=== PATIENT | male | born 2000 | race Caucasian/White ===

== ENCOUNTER 2020-08-24 01:07 | Emergency (ER) | payer SELFPAY ==
[~2020-08-24] VITALS: Ht 167.6 cm; Wt 72.6 kg
[2020-08-24] MEDS ORDERED: NS IV 1000 ML 1,000 ML IV STA (01:26)
--- NOTE | 2020-08-24 01:31 | ED Abdominal Pain ---
General Chief Complaint: Abdominal/GI Problems Stated Complaint: RT SIDE ABD PAIN Nursing Triage Note: RLQ ABDOMINAL PAIN SINCE 2100 AFTER EATING. Sepsis Screen: No Definite Risk Source of Information: Patient Exam Limitations: No Limitations History of Present Illness Date Seen by Provider: Aug 24, 2020 Time Seen by Provider: 01:20 Initial Comments Here with right-sided and right lower quadrant abdominal pain that started at about 9 PM after eating bread sticks. Pain went away but came back later after eating again. Pain is been and pretty constant although a little better currently. Denies nausea or vomiting but does feel a bit constipated. Denies dysuria or diarrhea or blood in his urine or stool. Denies fever chills. Tried drinking water to help him urinate but has not really urinated much since drinking the water. Timing/Duration: 4-6 Hours Severity/Quality: Moderate Location: RLQ Radiation: No Radiation Activities at Onset: None Modifying Factors: Worsens With Eating; Improves With Resting Associated Symptoms: No Fever/Chills, No Nausea/Vomiting, No Shortness of Air, No Weakness Allergies and Home Medications Allergies Coded Allergies: No Known Drug Allergies (Unverified , 08/24/20) Home Medications No Active Prescriptions or Reported Meds Patient Home Medication List Home Medication List Reviewed: Yes Review of Systems Review of Systems Constitutional: see HPI; No chills, No fever EENTM: No Symptoms Reported Respiratory: No Symptoms Reported Cardiovascular: Denies Chest Pain, Denies Edema Gastrointestinal: Abdominal Pain, Constipated; Denies Nausea, Denies Vomiting Genitourinary: No Symptoms Reported All Other Systems Reviewed Negative Unless Noted: Yes Past Aulzgws-Ttgrvj-Sxeico Hx Past Med/Social Hx: Reviewed Nursing Past Med/Soc Hx Patient Social History Alcohol Use: Rarely Uses Smoking Status: Current Everyday Smoker Type Used: Electronic/Vapor 2nd Hand Smoke Exposure: Yes Recent Infectious Disease Expo: No Recent Hopitalizations: No Immunizations Up To Date Tetanus Booster (TDap): Unknown Seasonal Allergies Seasonal Allergies: No Past Medical History Surgeries: No Respiratory: No Cardiac: No Neurological: No Genitourinary: No Gastrointestinal: No Musculoskeletal: No Endocrine: No HEENT: No Cancer: No Psychosocial: No Integumentary: No Blood Disorders: No Family Medical History Reviewed Nursing Family Hx No Pertinent Family Hx Physical Exam Vital Signs Vital Signs - First Documented 08/24/20 01:15 Temp 36.5 Pulse 99 Resp 18 B/P (MAP) 145/90 (108) Pulse Ox 99 O2 Delivery Room Air Capillary Refill : Less Than 3 Seconds Height/Weight/BMI Height: '" Weight: lbs. oz. kg; 25.00 BMI Method: General Appearance: WD/WN, no apparent distress HEENT: PERRL/EOMI, pharynx normal Neck: full range of motion, supple Respiratory: lungs clear, normal breath sounds Cardiovascular: regular rate, rhythm, no murmur Gastrointestinal: soft; No guarding, No rebound; tenderness (Right lower quadrant) Extremities: non-tender, normal inspection Back: normal inspection, no CVA tenderness, no vertebral tenderness Neurologic/Psychiatric: no motor/sensory deficits, alert, oriented x 3 Skin: normal color, warm/dry Progress/Results/Core Measures Results/Orders Lab Results Laboratory Tests Test 08/24/20 01:25 08/24/20 02:05 08/24/20 03:32 Range/Units White Blood Count 11.8 H 4.3-11.0 10^3/uL Red Blood Count 4.66 4.30-5.52 10^6/uL Hemoglobin 14.2 13.3-17.7 g/dL Hematocrit 41 40-54 % Mean Corpuscular Volume 87 80-99 fL Mean Corpuscular Hemoglobin 31 25-34 pg Mean Corpuscular Hemoglobin Concent 35 32-36 g/dL Red Cell Distribution Width 11.9 10.0-14.5 % Platelet Count 217 130-400 10^3/uL Mean Platelet Volume 9.2 9.0-12.2 fL Immature Granulocyte % (Auto) 0 % Neutrophils (%) (Auto) 79 H 42-75 % Lymphocytes (%) (Auto) 12 12-44 % Monocytes (%) (Auto) 7 0-12 % Eosinophils (%) (Auto) 1 0-10 % Basophils (%) (Auto) 0 0-10 % Neutrophils # (Auto) 9.4 H 1.8-7.8 10^3/uL Lymphocytes # (Auto) 1.4 1.0-4.0 10^3/uL Monocytes # (Auto) 0.8 0.0-1.0 10^3/uL Eosinophils # (Auto) 0.1 0.0-0.3 10^3/uL Basophils # (Auto) 0.0 0.0-0.1 10^3/uL Immature Granulocyte # (Auto) 0.1 0.0-0.1 10^3/uL Sodium Level 141 135-145 MMOL/L Potassium Level 3.5 L 3.6-5.0 MMOL/L Chloride Level 106 98-107 MMOL/L Carbon Dioxide Level 25 21-32 MMOL/L Anion Gap 10 5-14 MMOL/L Blood Urea Nitrogen 9 7-18 MG/DL Creatinine 0.90 0.60-1.30 MG/DL Estimat Glomerular Filtration Rate > 60 BUN/Creatinine Ratio 10 Glucose Level 94 70-105 MG/DL Calcium Level 9.0 8.5-10.1 MG/DL Corrected Calcium 8.5-10.1 MG/DL Total Bilirubin 0.4 0.1-1.0 MG/DL Aspartate Amino Transf (AST/SGOT) 15 5-34 U/L Alanine Aminotransferase (ALT/SGPT) 13 0-55 U/L Alkaline Phosphatase 65 40-136 U/L C-Reactive Protein High Sensitivity 0.51 H 0.00-0.50 MG/DL Total Protein 7.0 6.4-8.2 GM/DL Albumin 4.7 H 3.2-4.5 GM/DL Urine Color YELLOW Urine Clarity CLEAR Urine pH 6.5 5-9 Urine Specific [place] <=1.005 1.016-1.022 Urine Protein NEGATIVE NEGATIVE Urine Glucose (UA) NEGATIVE NEGATIVE Urine Ketones NEGATIVE NEGATIVE Urine Nitrite NEGATIVE NEGATIVE Urine Bilirubin NEGATIVE NEGATIVE Urine Urobilinogen 0.2 < = 1.0 MG/DL Urine Leukocyte Esterase NEGATIVE NEGATIVE Urine RBC (Auto) NEGATIVE NEGATIVE Urine RBC NONE /HPF Urine WBC NONE /HPF Urine Squamous Epithelial Cells RARE /HPF Urine Crystals NONE /LPF Urine Bacteria NEGATIVE /HPF Urine Casts NONE /LPF Urine Mucus SMALL H /LPF Urine Culture Indicated NO Coronavirus 2019 (JAREN) Negative Negative Micro Results Microbiology 08/24/20 Influenza Types A,B Antigen (AYLIN) - Final, Complete My Orders Orders - AMELIA NOEL MD Cbc With Automated Diff (08/24/20 01:26) Comprehensive Metabolic Panel (08/24/20 01:26) Hs C Reactive Protein (08/24/20 01:26) Ua Culture If Indicated (08/24/20 01:26) Ns Iv 1000 Ml (Sodium Chloride 0.9%) (08/24/20 01:26) Ed Iv/Invasive Line Start (08/24/20 01:26) Ct Abd/Pelv W (Appendicitis) (08/24/20 02:04) Influenza A And B Antigens (08/24/20 03:37) Covid 19 Inhouse Test (08/24/20 03:37) Vital Signs/I&O 08/24/20 01:15 Temp 36.5 Pulse 99 Resp 18 B/P (MAP) 145/90 (108) Pulse Ox 99 O2 Delivery Room Air Blood Pressure Mean: 108 Progress Progress Note : Progress Note Seen and evaluated. IV, labs, UA, normal saline 1 L bolus ordered. Monitor patient. 0204: Patient does have elevated white blood cell count with the right lower quadrant pain and normal UA. CT abdomen pelvis appendicitis protocol ordered. Monitor patient. 0328: CT did not visualize appendix. I did discuss everything further with the patient and now he admits that he has had some sore throat and runny nose for a few days. No known Covid contacts. He did have a negative test a few weeks ago. Given current situation, we will go ahead and test for Covid and influenza. Monitor patient. 0407: Patient is flu be positive and COVID-19 negative. States his pain is essentially resolved right now. I did discuss option with him regarding follow-up. He will return in 12 hours for recheck for any worsening or other concerns. He is walking without difficulty and urinating without difficulty now. Discharged home with return precautions. Patient verbalized understanding of instructions and agreement with plan. Diagnostic Imaging Diagonstic Imaging: CT Plain Films/CT/US/NM/MRI: abdomen, pelvis Comments Nonvisualization of the appendix. No bowel obstruction or right lower quadrant or pelvic inflammatory process noted. Questionable trace pericholecystic fluid versus gallbladder edema. The gallbladder is mostly contracted and the common bile duct is less than 3 to 4 mm. If there is any indication or gallbladder disease, gallbladder ultrasound could be performed. If index of suspicion is high for appendicitis, a delayed oral contrast examination could be performed for better delineation of the right lower quadrant bowel. Reviewed: Reviewed [place] Study, Reviewed by Me Departure Impression Primary Impression: Influenza B Additional Impression: Right lower quadrant abdominal pain Disposition: HOME, SELF-CARE Condition: Stable Departure-Patient Inst. Decision time for Depature: 04:08 Referrals: NO,LOCAL PHYSICIAN (PCP/Family) Primary Care Physician Patient Instructions: Severe Abdominal Pain, Adult (DC), Flu, Adult (DC) Add. Discharge Instructions: All discharge instructions reviewed with patient and/or family. Voiced unders tanding. Return in 12 hours for recheck and further evaluation for your abdominal pain. Drink plenty of fluids and get plenty of rest. You may take Tylenol/acetaminophen 1000 mg every 6 hours as needed for pain. You may take ibuprofen 600 mg every 8 hours as needed for pain. Return for worse pain, fever, vomiting, weakness, breathing problems or other concerns as needed. Scripts No Active Prescriptions or Reported Meds AMELIA NOEL MD Aug 24, 2020 01:30
[2020-08-24 01:35] LABS: BASOPHILS % (AUTO) 0 % (0-10); EOSINOPHILS # (AUTO) 0.1 10^3/uL (0.0-0.3); EOSINOPHILS % (AUTO) 1 % (0-10); HEMATOCRIT 41 % (40-54); HEMOGLOBIN 14.2 g/dL (13.3-17.7); LYMPHOCYTES # (AUTO) 1.4 10^3/uL (1.0-4.0); LYMPHOCYTES % (AUTO) 12 % (12-44); MEAN CORPUSCULAR HEMOGLOBIN 31 pg (25-34); MEAN CORPUSCULAR HGB CONC 35 g/dL (32-36); MEAN CORPUSCULAR VOLUME 87 fL (80-99); MEAN PLATELET VOLUME 9.2 fL (9.0-12.2); MONOCYTES # (AUTO) 0.8 10^3/uL (0.0-1.0); MONOCYTES % (AUTO) 7 % (0-12); NEUTROPHILS # (AUTO) 9.4 10^3/uL (1.8-7.8); NEUTROPHILS % (AUTO) 79 % (42-75); PLATELET COUNT 217 10^3/uL (130-400); WHITE BLOOD COUNT 11.8 10^3/uL (4.3-11.0)
[2020-08-24 01:44] LABS: ALBUMIN 4.7 GM/DL (3.2-4.5); CHLORIDE 106 MMOL/L (98-107); POTASSIUM 3.5 MMOL/L (3.6-5.0); SODIUM 141 MMOL/L (135-145)
[2020-08-24 01:47] LABS: GLUCOSE 94 MG/DL (70-105)
[2020-08-24 01:48] LABS: CARBON DIOXIDE 25 MMOL/L (21-32)
[2020-08-24 01:49] LABS: BILIRUBIN,TOTAL 0.4 MG/DL (0.1-1.0)
[2020-08-24 01:50] LABS: ALKALINE PHOSPHATASE 65 U/L (40-136)
[2020-08-24 01:51] LABS: GFR ESTIMATED > 60
[2020-08-24 01:52] LABS: BUN/CREATININE RATIO 10
[2020-08-24 01:53] LABS: ALANINE AMINOTRANSFERASE 13 U/L (0-55)
[2020-08-24 02:11] LABS: BILIRUBIN,URINE NEGATIVE (NEGATIVE); CLARITY,URINE CLEAR; COLOR,URINE YELLOW; GLUCOSE, URINE (UA) NEGATIVE (NEGATIVE); KETONES,URINE NEGATIVE (NEGATIVE); LEUKOCYTE ESTERASE ,URINE NEGATIVE (NEGATIVE); NITRITE,URINE NEGATIVE (NEGATIVE); PH,URINE 6.5 (5-9); PROTEIN,URINE NEGATIVE (NEGATIVE)
[2020-08-24 02:17] LABS: BACTERIA,URINE NEGATIVE /HPF; SQUAMOUS EPITHELIAL CELL,UR RARE /HPF
[2020-08-24 04:12] VITALS: BP 123/75
[2020-08-24] MEDS ORDERED: IOHEXOL 350 MG/ML 100 ML (OMNIPAQUE 350) VIAL IV ONE (04:30)
[2020-08-24] MEDS ORDERED: NS 100 ML (IVPB) BAG IV ONE (04:30)
--- NOTE | 2020-08-24 06:12 | Diagnostic Imaging Report ---
CT ABD/PELV W (APPENDICITIS) TECHNIQUE: Multiple contiguous axial images were obtained through the abdomen and pelvis after administration of intravenous contrast. All CT scans use one or more of the following dose optimizing techniques: automated exposure control, MA and/or KvP adjustment based on a patient size and exam type, or iterative reconstruction. INDICATION: Right lower quadrant pain. COMPARISON: None available. FINDINGS: Lower chest: The lung bases are clear. No pericardial or pleural effusion. Peritoneum: No free intraperitoneal air or fluid. Liver and biliary system: The liver is normal. Gallbladder is contracted with potential pericholecystic fluid and/or gallbladder wall thickening. Spleen and Pancreas: Spleen is normal. The pancreas enhances normally without mass lesion or peripancreatic inflammatory changes. Adrenals: Normal. tract: The kidneys enhance normally without suspicious mass or obstruction. Urinary bladder is distended without wall thickening. Prostate is not enlarged. GI tract: Stomach is decompressed. No bowel obstruction. No pericolonic inflammatory changes. The appendix is mildly dilated measuring 8 mm and has a retrocecal position. There is minimal stranding around the appendix raising the possibility of mild appendicitis. Vasculature and Lymph nodes: Normal caliber aorta. No abdominal or pelvic lymphadenopathy. Musculoskeletal: No concerning osseous lesion. IMPRESSION: 1. The appendix is located in a retrocecal position in the right upper quadrant and is borderline thickened with questionable surrounding stranding. This raises the possibility of acute appendicitis. However, there is no perforation or abscess. 2. Mild pericholecystic fluid is a possibility of acute cholecystitis. The discrepancy of possible acute appendicitis was called to Dr. Mejia in the emergency department by Dr. Vel Ulloa at 6:09 AM on 08/24/2020. Dictated by: Dictated on workstation # [id number]
== END 2020-08-24 04:12 | disposition home or self-care (01) ==
LOC: EDUNIT# 01:07 → ER 01:12
DX: R10.31 Right lower quadrant pain (principal); J10.1 Influenza due to other identified influenza virus with other respiratory manifestations; K59.00 Constipation, unspecified; F17.290 Nicotine dependence, other tobacco product, uncomplicated; Z20.822 Contact with and (suspected) exposure to COVID-19
CPT/HCPCS: 74177; 80053; 81000; 85025; 86141; 87804; 99284; U0002; 36415; 87635